=== PATIENT | male | born 1965 | race Caucasian/White ===

== ENCOUNTER 2016-10-11 13:04 | Emergency (ER) | payer OTHER ==
[2016-10-11 13:21] VITALS: BP 117/81; PULSE 100; TEMP 98; BMI 28.1
[2016-10-11] MEDS ORDERED: AMOX TR/POT CLAV 875MG/125MG TABLETS (FP) PO ONE (14:01)
[2016-10-11] MEDS ORDERED: DEXAMETHASONE SOD PHOSPHATE 10 MG/1 ML VIAL IM ONE (14:01)
[2016-10-11] MEDS ORDERED: DEXAMETHASONE SOD PHOSPHATE 10 MG/1 ML VIAL ONE (14:04)
[2016-10-11] MEDS ORDERED: AMOX TR/POT CLAV 875MG/125MG TABLETS (FP) ONE (14:04)
--- NOTE | 2016-10-11 14:26 | PDOC ---
History of Present Illness - General Chief Complaint: Sore Throat Stated Complaint: NECK PAIN Time Seen by Provider: 10/11/16 13:40 History Source: Patient Exam Limitations: No Limitations - History of Present Illness Initial Comments: 10/11/16 14:17 CC sore throat x 3-4 days; no fever; with difficulty swollowing x 1 day; similar problem in past Severity: moderate Associated Symptoms: reports: fever/chills. denies: cough, loss of appetite, nausea/vomiting, shortness of breath Past History - Past Medical History Allergies/Adverse Reactions: Allergies Allergy/AdvReac Type Severity Reaction Status Date / Time aspirin Allergy Verified 10/11/16 13:21 Home Medications: Ambulatory Orders Amox-Tr/K Cl [Augmentin - 875Mg Tablet] 1 tab PO BID #14 tablet 10/11/16 Benzocaine/Menthol [[facility] Sore Throat Lozenge] 1 each MM 5XD #30 lozenge 10/11/16 Suicide Attempt (Hx): No - Psycho/Social/Smoking Cessation Hx Anxiety: No Suicidal Ideation: No Smoking Status: No Smoking History: Never smoked Have you smoked in the past 12 months: No Number of Cigarettes Smoked Daily: 0 Information on smoking cessation initiated: No Hx Alcohol Use: No Drug/Substance Use Hx: No Substance Use Type: None Review of Systems - Review of Systems HEENTM: Yes: Throat Pain, Difficulty Swallowing. No: Blurred Vision, Throat Swelling, Dental Problems Respiratory: Yes: Symptoms reported, Cough Cardiac (ROS): No: Symptoms Reported *Physical Exam - Vital Signs Last Vital Signs Temp Pulse Resp BP Pulse Ox 98 F 100 H 18 117/81 98 10/11/16 13:17 10/11/16 13:17 10/11/16 13:17 10/11/16 13:17 10/11/16 13:17 - Physical Exam General Appearance: Yes: Appropriately Dressed HEENT: positive: TMs Normal, Pharyngeal Erythema, Tonsillar Exudate. negative: TM Bulging, TM Dull, TM Erythema Neck: positive: Lymphadenopathy (R), Lymphadenopathy (L). negative: Tender, Rigid Respiratory/Chest: positive: Lungs Clear Cardiovascular: positive: Regular Rhythm, Regular Rate. negative: Murmur Gastrointestinal/Abdominal: positive: Organomegaly. negative: Normal Bowel Sounds, Tender, Soft ED Treatment Course - Medications Given in the ED: ED Medications Discontinued Medications Generic Name Dose Route Start Last Admin Trade Name Marty PRN Reason Stop Dose Admin Amoxicillin/Clavulanate Potassium 1 tab 10/11/16 14:01 10/11/16 14:12 Augmentin - 875mg Tablet PO 10/11/16 14:02 1 tab ONCE ONE Administration Dexamethasone Sodium Phosphate 10 mg 10/11/16 14:01 10/11/16 14:12 Decadron Injection - IM 10/11/16 14:02 10 mg ONCE ONE Administration Medical Decision Making - Medical Decision Making 10/11/16 14:30 reoccurring pharyngitis; will treat with Augmentin and steroid and pain relief lozenges which have worked in past; will refer to Dr Crump *DC/Admit/Observation/Transfer Diagnosis at time of Disposition: Acute pharyngitis Qualifiers: Pharyngitis/tonsillitis etiology: unspecified etiology Qualified Code(s): J02.9 - Acute pharyngitis, unspecified - Discharge Dispostion Disposition: HOME Condition at time of disposition: Stable Admit: No - Prescriptions Prescriptions: Amox-Tr/K Cl [Augmentin - 875Mg Tablet] 1 tab PO BID #14 tablet Benzocaine/Menthol [[facility] Sore Throat Lozenge] 1 each MM 5XD #30 lozenge - Referrals Referrals: Bakari Crump MD [Staff Physician] - - Patient Instructions Additional Instructions: please see Dr Crump if no better in 3 days; return for increased swelling - Post Discharge Activity Work/School Note: Back to Work
== END 2016-10-11 14:41 | disposition home or self-care (01) ==
LOC: JERFT 13:04
DX: J02.9 Acute pharyngitis, unspecified (principal)
CPT/HCPCS: 99281-25

== ENCOUNTER 2017-07-29 15:37 | Emergency (ER) | payer OTHER ==
[2017-07-29 15:44] VITALS: BP 114/65; PULSE 97; TEMP 97.8; BMI 25.7
[2017-07-29] MEDS ORDERED: predniSONE 20 MG TABLET (UD) PO ONE (16:07)
--- NOTE | 2017-07-29 16:14 | PDOC ---
History of Present Illness - General Chief Complaint: Cold Symptoms Stated Complaint: CONGESTION Time Seen by Provider: 07/29/17 15:51 History Source: Patient Exam Limitations: No Limitations - History of Present Illness Initial Comments: 07/29/17 16:08 This is a 51-year-old male with past medical history of diet-controlled diabetes who presents to the emergency department with 2 days of productive cough and wheezing. Patient states she was in his usual state of health when he began to notice a feeling tightness with respiration and audible wheezes 2 days ago. Since then he started coughing which is productive of yellow sputum. He denies any fevers, chills, chest pain, dizziness, abdominal pain, nausea, vomiting, dysuria. PMH: Diet-controlled diabetes PSH: Denies ALLERGIES: Aspirin Tobacco: Denies EtOH: Denies Drugs: Denies Past History - Past Medical History Allergies/Adverse Reactions: Allergies Allergy/AdvReac Type Severity Reaction Status Date / Time aspirin Allergy Verified 07/29/17 15:44 Home Medications: Ambulatory Orders Prednisone [Prednisone 50 MG TABLETS] 50 mg PO DAILY #4 tablet 07/29/17 COPD: No - Suicide/Smoking/Psychosocial Hx Smoking Status: No Smoking History: Never smoked Have you smoked in the past 12 months: No Number of Cigarettes Smoked Daily: 0 Information on smoking cessation initiated: No Hx Alcohol Use: No Drug/Substance Use Hx: No Substance Use Type: None Review of Systems - Review of Systems Able to Perform ROS?: Yes Is the patient limited Hungarian proficient: No Constitutional: No: Symptoms Reported HEENTM: No: Symptoms Reported Respiratory: Yes: See HPI Cardiac (ROS): No: Symptoms Reported ABD/GI: No: Symptoms Reported : No: Symptoms Reported Musculoskeletal: No: Symptoms Reported Integumentary: No: Symptoms Reported Neurological: No: Symptoms reported *Physical Exam - Vital Signs Last Vital Signs Temp Pulse Resp BP Pulse Ox 97.8 F 97 H 17 114/65 97 07/29/17 15:42 07/29/17 15:42 07/29/17 15:42 07/29/17 15:42 07/29/17 15:42 - Physical Exam General Appearance: Yes: Appropriately Dressed. No: Apparent Distress HEENT: positive: Normal ENT Inspection Neck: positive: Trachea midline, Supple Respiratory/Chest: positive: Wheezing. negative: Respiratory Distress, Accessory Muscle Use Cardiovascular: positive: Regular Rhythm, Regular Rate, S1, S2. negative: JVD, Murmur Gastrointestinal/Abdominal: positive: Normal Bowel Sounds, Soft. negative: Tender Musculoskeletal: positive: Normal Inspection. negative: CVA Tenderness Extremity: positive: Normal Inspection, Normal Range of Motion Integumentary: positive: Normal Color, Dry, Warm Neurologic: positive: Fully Oriented, Alert, Normal Mood/Affect, Normal Response , Motor Strength 5/5 Medical Decision Making - Medical Decision Making 07/29/17 16:11 A/P: This is a 51-year-old male with past medical history of diet-controlled diabetes who presents to the emergency department with 2 days of productive cough and wheezing. Patient states she was in his usual state of health when he began to notice a feeling tightness with respiration and audible wheezes 2 days ago. Since then he started coughing which is productive of yellow sputum. He denies any fevers, chills, chest pain, dizziness, abdominal pain, nausea, vomiting, dysuria. Oropharynx clear without exudate or erythema. No cobblestone in noted. No tenderness over maxillary or frontal sinuses. No JVD is evident. Expiratory wheezes auscultated in all mccormick. Respirations even and unlabored. No sensory muscle use. Regular rate and rhythm. No murmur, rub or gallop noted. Abdomen soft nontender nondistended. Differential diagnosis include viral illness versus reactive airway disease I'll obtain a chest x-ray, give the patient Combivent 3 and prednisone 60 mg orally 1. I will reevaluate the patient after all testing and medications have been given. 07/29/17 17:28 Chest x-ray as read by me: Costal margins intact. No focal consolidations noted. Visualized osseous structures intact. Repeat rest to exam reveals clear lungs and wheezing has resolved. Results related to patient who is requesting discharge at this time. I will discharge the patient with steroids for the next 4 days and follow-up with this primary doctor next week. *DC/Admit/Observation/Transfer Diagnosis at time of Disposition: URI, acute - Discharge Dispostion Disposition: HOME Condition at time of disposition: Stable Admit: No - Prescriptions Prescriptions: Prednisone [Prednisone 50 MG TABLETS] 50 mg PO DAILY #4 tablet - Referrals - Patient Instructions Additional Instructions: Take prednisone 50 mg for the next 4 days. Use a humidifier in the room while sleeping to help keep mucous membranes moist. Take Tylenol or Motrin if express any fevers. Follow manufacturers instructions for appropriate dosage. Return to emergency department for difficulty breathing, shortness of breath, chest pain, dizziness, any other concerns. Thank you very much for choosing us to provide your emergent healthcare needs. - Post Discharge Activity
[2017-07-29] MEDS ORDERED: predniSONE 20 MG TABLET (UD) ONE (16:18)
[2017-07-29] MEDS ORDERED: ALBUTEROL SO4 2.5/IPRATROPIUM 0.5 INH SOL 3 ML VIAL.NEB. NEB ONE (16:19)
[2017-07-29] MEDS: ALBUTEROL SO4 2.5/IPRATROPIUM 0.5 INH SOL 3 ML VIAL.NEB. NEB SCH ×4 (16:20→17:31)
== END 2017-07-29 17:36 | disposition home or self-care (01) ==
LOC: JERFT 15:37
DX: J06.9 Acute upper respiratory infection, unspecified (principal)
CPT/HCPCS: 71020-TC; 99281-25